=== PATIENT | female | born 1955 | race African-American/Black ===

== ENCOUNTER 2024-10-07 13:06 | Emergency (ER) | payer OTHER ==
[2024-10-07 13:25] VITALS: BP 126/75; PULSE 91; RESP 18; TEMP 98.3; BMI 19.2
== END 2024-10-07 14:19 | disposition home or self-care (01) ==
LOC: JER 13:06
DX: I83.892 Varicose veins of left lower extremity with other complications (principal)
CPT/HCPCS: 99283-25